=== PATIENT | male | born 1955 | race Caucasian/White ===

== ENCOUNTER 2018-09-13 07:24 | Day surgery (SDC) | payer BC ==
[2018-09-12 10:44] VITALS: BMI 25.0
[~2018-09-13 07:24] MED LIST: ACETAMINOPHEN 325 MG TABLET (FP) PO PRN
[2018-09-13] MEDS ORDERED: CYCLOPENTOLATE HCL 1% OPHTH SOLN 2 ML BOTTLE ONE (07:35)
[2018-09-13] MEDS ORDERED: OFLOXACIN 0.3% OPHTHALMIC SOLUTION 5 ML BOTTLE ONE (07:35)
[2018-09-13] MEDS ORDERED: KETOROLAC TROMETHAMINE 0.5% EYE DROP 1 DROP DROPS ONE (07:36)
[2018-09-13] MEDS ORDERED: TROPICAMIDE 1% OPHTH SOLN 15 ML BOTTLE ONE (07:36)
[2018-09-13] MEDS: KETOROLAC TROMETHAMINE 0.5% EYE DROP 1 DROP DROPS OP SCH ×3 (07:40→07:50)
[2018-09-13] MEDS: CYCLOPENTOLATE HCL 1% OPHTH SOLN 2 ML BOTTLE OP SCH ×3 (07:40→07:50)
[2018-09-13] MEDS: PHENYLEPHRINE 2.5% OPHTH SOLN 15 ML BOTTLE OP SCH ×3 (07:40→07:50)
[2018-09-13] MEDS: OFLOXACIN 0.3% OPHTHALMIC SOLUTION 5 ML BOTTLE OP SCH ×3 (07:40→07:50)
[2018-09-13] MEDS ORDERED: TROPICAMIDE 1% OPHTH SOLN 15 ML BOTTLE OP ONE ×3 (07:40→07:50)
[2018-09-13 07:49] VITALS: TEMP 97.8
[2018-09-13] MEDS ORDERED: TETRACAINE 0.5% OPHTH SOLN 2 ML BOTTLE ONE (08:43)
[2018-09-13] MEDS ORDERED: LIDOCAINE HCL/PF 1% SDV 5ML VIAL ONE (08:44)
[2018-09-13] MEDS ORDERED: MIDAZOLAM HCL 2 MG/2 ML SINGLE DOSE VIAL ONE (09:03)
[2018-09-13] MEDS ORDERED: POVIDONE-IODINE OINTMENT 10% - 28.4 GM TUBE TP ONE (09:14)
[2018-09-13] MEDS ORDERED: TETRACAINE 0.5% OPHTH SOLN 2 ML BOTTLE OD ONE (09:14)
[2018-09-13] MEDS ORDERED: BSS (NA/CA/MG/K) BALANCED SALT SOLUTION OPHTH SOLN 15 ML BOTTLE OD ONE ×2 (09:16→09:23)
[2018-09-13] MEDS ORDERED: LIDOCAINE HCL 1% PRESERVATIVE FREE - 30ML VIAL IO ONE (09:16)
[2018-09-13] MEDS ORDERED: CHONDROITIN SU A/HYALUR SOD 1 KIT IO ONE (09:17)
[2018-09-13] MEDS ORDERED: TRYPAN BLUE 0.5 ML DISP.SYRIN IO ONE (09:17)
[2018-09-13] MEDS ORDERED: HYALURONATE SODIUM 14 MG/ML DISP.SYRIN IO ONE ×2 (09:26→10:30)
[2018-09-13] MEDS ORDERED: TROPICAMIDE 1% OPHTH SOLN 15 ML BOTTLE OP SCH (09:45)
--- NOTE | 2018-09-13 09:54 | SPEC ---
DATE OF OPERATION: 09/13/2018 OPERATION: Phacoemulsification of right cataract with capsular staining with Trypan blue and posterior chamber intraocular lens implantation; the lens used [id number], 22.5 diopter power, Serial No. [id number]. PREOPERATIVE DIAGNOSIS: Mature cataract, right eye. ASSOCIATIVE DIAGNOSIS: POSTOPERATIVE DIAGNOSIS: Mature cataract, right eye. SURGEON: Ashok Amato M.D. ANESTHESIA: Topical MAC. COMPLICATIONS: None. PROCEDURE: The patient was brought to the operating room and correctly identified along with the operative site as well as correct intraocular lens campos. The patient was then prepped and draped in the usual sterile fashion including 5% Betadine solution in the conjunctival sac and an eyelid drape. An eyelid speculum was then placed into the operative eye. The eye was inspected and a poor red reflex was noted. A paracentesis port was created and .5 mL of intracameral preservative-free Lidocaine 1% was given. Beneath an air bubble, the capsule was then stained with Trypan blue. The Trypan blue was then irrigated from the eye with balanced salt solution (BBS). Viscoelastic was injected to inflate the anterior chamber. A temporal clear corneal would was created. A continuous circular capsulorrhexis was performed. The nucleus was then hydro-dissected and hydro-delineated was BSS and removed with phacoemulsification via dqfary-[id number] approach. The remaining cortical material was irrigated and aspirated from the eye. Viscoelastic was injected in the anterior chamber to inflate the capsular bag. The intraocular lens was then injected into the bag. The Viscoelastic was irrigated and aspirated from the eye. All wounds were tested and found to be watertight. No suture was placed. The intraocular lens was noted to be well centered and covered by the anterior capsular border. Topical Vancomycin was given. The eye was patched and shielded. The patient was discharged from the operating room in stable condition. ASHOK AMATO M.D. [id number]
[2018-09-13 10:27] VITALS: BP 148/80; PULSE 64
[2018-09-13] MEDS ORDERED: CHONDROITIN SU A/HYALUR SOD 1 KIT ONE (10:30)
== END 2018-09-13 10:34 | disposition home or self-care (01) ==
LOC: JASU-SURG 07:24
PROVIDERS: ATTEND Ophthalmology
PROC: 08RJ3JZ Replacement of Right Lens with Synthetic Substitute, Percutaneous Approach (ICD-10-PCS; principal; 2018-09-13 09:00)
DX: H25.091 Other age-related incipient cataract, right eye (principal); H57.89 Other specified disorders of eye and adnexa; I10 Essential (primary) hypertension

== ENCOUNTER 2018-09-27 07:18 | Day surgery (SDC) | payer BC ==
[2018-09-26 16:37] VITALS: BMI 25.0
[2018-09-27] MEDS ORDERED: OFLOXACIN 0.3% OPHTHALMIC SOLUTION 5 ML BOTTLE ONE (07:39)
[2018-09-27] MEDS ORDERED: CYCLOPENTOLATE HCL 1% OPHTH SOLN 2 ML BOTTLE ONE (07:39)
[2018-09-27] MEDS ORDERED: PHENYLEPHRINE 2.5% OPHTH SOLN 15 ML BOTTLE ONE (07:39)
[2018-09-27] MEDS ORDERED: TROPICAMIDE 1% OPHTH SOLN 15 ML BOTTLE ONE (07:39)
[2018-09-27] MEDS ORDERED: KETOROLAC TROMETHAMINE 0.5% EYE DROP 1 DROP DROPS ONE (07:39)
[2018-09-27] MEDS: KETOROLAC TROMETHAMINE 0.5% EYE DROP 1 DROP DROPS OP SCH ×3 (07:50→08:05)
[2018-09-27] MEDS: CYCLOPENTOLATE HCL 1% OPHTH SOLN 2 ML BOTTLE OP SCH ×3 (07:50→08:05)
[2018-09-27] MEDS: OFLOXACIN 0.3% OPHTHALMIC SOLUTION 5 ML BOTTLE OP SCH ×3 (07:50→08:05)
[2018-09-27] MEDS: TROPICAMIDE 1% OPHTH SOLN 15 ML BOTTLE OP SCH ×3 (07:50→08:05)
[2018-09-27] MEDS: PHENYLEPHRINE 2.5% OPHTH SOLN 15 ML BOTTLE OP SCH ×2 (07:50→07:55)
[2018-09-27] MEDS ORDERED: MIDAZOLAM HCL 2 MG/2 ML SINGLE DOSE VIAL ONE (09:14)
[2018-09-27] MEDS ORDERED: TETRACAINE 0.5% OPHTH SOLN 2 ML BOTTLE OS ONE (09:18)
[2018-09-27] MEDS ORDERED: POVIDONE-IODINE 5% OPHTHALMIC PREP 30 ML SOLUTION OS ONE (09:19)
[2018-09-27] MEDS ORDERED: CHONDROITIN SU A/HYALUR SOD 1 KIT IO ONE (09:27)
[2018-09-27] MEDS ORDERED: LIDOCAINE HCL 1% PRESERVATIVE FREE - 30ML VIAL IO ONE (09:27)
[2018-09-27] MEDS ORDERED: BSS (NA/CA/MG/K) BALANCED SALT SOLUTION OPHTH SOLN 15 ML BOTTLE OS ONE (09:27)
[2018-09-27] MEDS ORDERED: EPINEPHrine/PF 1 MG/1 ML (1:1,000) AMPULE SQ ONE (09:32)
--- NOTE | 2018-09-27 10:17 | SPEC ---
DATE OF OPERATION: DATE OF DICTATION 09/27/2018 OPERATION: Phacoemulsification with posterior chamber intraocular lens implantation, left eye. Lens used SN60WF, 21.0 Diopter power, Serial No. [id number]. PREOPERATIVE DIAGNOSIS: Cataract, left eye. POSTOPERATIVE DIAGNOSIS: Cataract, lefteye. SURGEON: Ashok Amato M.D. ANESTHESIA: Topical MAC. COMPLICATIONS: None. PROCEDURE: The patient was brought to the operating room and correctly identified along with the operative site and the correct intraocular lens campos. The patient was then prepped and draped in the usual sterile fashion including 5% Betadine solution in the conjunctival sac and an eyelid drape. An eyelid speculum was then placed in the eye. A paracentesis port was created and approximately 0.5 mL of preservative free Lidocaine was then injected into the eye. Viscoelastic was then injected to inflate the anterior chamber. A temporal clear corneal wound was created. A continuous circular capsulorrhexis was performed. The nucleus was then hydrodissected with BSS and removed with phacoemulsification. The remaining cortical material was irrigated and aspirated. Viscoelastic was injected to inflate the capsular bag and the intraocular lens was then implanted into the capsular bag. The remaining Viscoelastic was irrigated and aspirated from the eye. The IOL was noted to be well centered and completely covered by the anterior capsulorrhexis. Topical vancomycin was placed and the eye patched and shielded. All wounds were tested and found to be watertight. No suture was placed. The eye was then shielded. The patient was then discharged from the operating room in stable condition. ASHOK AMATO M.D. HL/[id number]
[2018-09-27 12:32] VITALS: BP 148/81; PULSE 60; TEMP 97.3
== END 2018-09-27 10:45 | disposition home or self-care (01) ==
LOC: JASU-SURG 07:18
PROVIDERS: ATTEND Ophthalmology
PROC: 08RK3JZ Replacement of Left Lens with Synthetic Substitute, Percutaneous Approach (ICD-10-PCS; principal; 2018-09-27 09:00)
DX: H26.9 Unspecified cataract (principal); I10 Essential (primary) hypertension; J44.9 Chronic obstructive pulmonary disease, unspecified

== ENCOUNTER 2022-06-23 13:23 | Inpatient (IN) | payer BC ==
[2022-06-23 15:26] LABS: BASO % 0.7 % (0-2.0); EOS % 1.1 % (0-4.5); HEMATOCRIT 45.3 % (35.4-49); HEMOGLOBIN 15.1 GM/dL (11.7-16.9); LYMPH % 16.1 % (8-40); MCH 30.8 pg (25.7-33.7); MCHC 33.4 g/dl (32.0-35.9); MEAN CELL VOLUME 92.2 fl (80-96); MEAN PLT VOLUME 7.5 fl (7.5-11.1); MONO % 8.5 % (3.8-10.2); NEUT % 73.6 % (42.8-82.8); PLATELET COUNT 358 10^3/uL (134-434); RBC 4.91 M/mm3 (4.00-5.60); RDW 12.9 % (11.9-15.9); WHITE BLOOD COUNT 11.5 K/mm3 (4.0-10.0)
[2022-06-23 15:32] LABS: INR 0.98 (0.83-1.09); PROTHROMBIN TIME (PATIENT) 11.3 SEC (9.7-13.0)
[2022-06-23 15:35] LABS: ACTIVATED PTT 31.1 SECONDS (25.2-36.5)
[2022-06-23 15:45] LABS: CALCIUM 9.5 mg/dL (8.5-10.1)
[2022-06-23 15:46] LABS: ALBUMIN 3.6 g/dl (3.4-5.0); BLOOD UREA NITROGEN 11.8 mg/dL (7-18); MAGNESIUM 2.1 mg/dL (1.8-2.4)
[2022-06-23 15:50] LABS: BILIRUBIN,TOTAL 0.4 mg/dL (0.2-1); TOT PROT 7.4 g/dl (6.4-8.2)
[2022-06-23] MEDS ORDERED: LIDOCAINE 1%/EPI 1:100000 (20 ML MULTI DOSE VIAL) ONE (18:07)
[2022-06-23] MEDS ORDERED: MIDAZOLAM HCL 2 MG/2 ML SINGLE DOSE VIAL IVPUSH ONE (18:12)
[2022-06-23] MEDS ORDERED: MIDAZOLAM HCL 2 MG/2 ML SINGLE DOSE VIAL ONE (18:13)
[2022-06-24] MEDS: ATORVASTATIN CA 40 MG TABLET (FP) PO SCH ×2 (02:35→21:18)
[2022-06-24] MEDS ORDERED: ACETAMINOPHEN 1000 MG/100 ML BAG IVPB ONE (02:38)
[2022-06-24] MEDS ORDERED: ATORVASTATIN CA 40 MG TABLET (FP) ONE (02:43)
[2022-06-24] MEDS: LEVOTHYROXINE NA 88 MCG TABLET (FP) PO SCH (08:55)
[2022-06-24] MEDS ORDERED: LEVOTHYROXINE NA 88 MCG TABLET (FP) ONE (08:58)
[2022-06-24 09:40] LABS: BASO % 0.3 % (0-2.0); EOS % 1.5 % (0-4.5); HEMATOCRIT 43.6 % (35.4-49); HEMOGLOBIN 14.6 GM/dL (11.7-16.9); LYMPH % 13.7 % (8-40); MCH 30.9 pg (25.7-33.7); MCHC 33.4 g/dl (32.0-35.9); MEAN CELL VOLUME 92.3 fl (80-96); MEAN PLT VOLUME 8.2 fl (7.5-11.1); MONO % 9.5 % (3.8-10.2); PLATELET COUNT 354 10^3/uL (134-434); RBC 4.72 M/mm3 (4.00-5.60); RDW 12.8 % (11.9-15.9)
[2022-06-24 10:07] LABS: ALBUMIN 3.4 g/dl (3.4-5.0)
[2022-06-24 10:08] LABS: CALCIUM 9.2 mg/dL (8.5-10.1); MAGNESIUM 2.1 mg/dL (1.8-2.4)
[2022-06-24 10:09] LABS: BLOOD UREA NITROGEN 15.3 mg/dL (7-18)
[2022-06-24 10:11] LABS: CREATININE 0.9 mg/dL (0.55-1.3); PHOSPHOROUS 3.7 mg/dL (2.5-4.9)
[2022-06-24 10:12] LABS: BILIRUBIN,TOTAL 0.7 mg/dL (0.2-1); TOT PROT 6.8 g/dl (6.4-8.2)
[2022-06-24] MEDS: ENALAPRIL MALEATE 5 MG TABLET PO SCH (11:16)
[2022-06-24] MEDS: ASPIRIN COATED 81 MG TABLET.EC PO SCH (11:17)
[2022-06-24] MEDS: metoPROLOL SUCCINATE 25 MG TAB.SR.24H (FP) PO SCH (11:17)
[2022-06-24] MEDS: ENOXAPARIN NA (PORCINE) 40 MG/0.4 ML DISP.SYRIN SQ SCH (11:18)
[2022-06-24] MEDS: CHOLECALCIFEROL (VIT D3) 1,000 UNIT (25 MCG) TABLET PO SCH (11:24)
[2022-06-25] MEDS: LEVOTHYROXINE NA 88 MCG TABLET (FP) PO SCH (06:48)
[2022-06-25 08:06] LABS: PH,URINE 5.5 (5.0-8.0); URINE APPEARANCE CLEAR; URINE BILIRUBIN NEGATIVE (NEGATIVE); URINE COLOR YELLOW; URINE GLUCOSE (UA) NEGATIVE (NEGATIVE); URINE KETONE TRACE (NEGATIVE); URINE LEUK ESTERASE NEGATIVE (NEGATIVE); URINE NITRITE NEGATIVE (NEGATIVE); URINE PROTEIN NEGATIVE (NEGATIVE)
[2022-06-25] MEDS: ENALAPRIL MALEATE 5 MG TABLET PO SCH (10:13)
[2022-06-25] MEDS: CHOLECALCIFEROL (VIT D3) 1,000 UNIT (25 MCG) TABLET PO SCH (10:13)
[2022-06-25] MEDS: metoPROLOL SUCCINATE 25 MG TAB.SR.24H (FP) PO SCH (10:13)
[2022-06-25] MEDS: ASPIRIN COATED 81 MG TABLET.EC PO SCH (10:13)
[2022-06-25] MEDS: ENOXAPARIN NA (PORCINE) 40 MG/0.4 ML DISP.SYRIN SQ SCH (10:14)
[2022-06-25] MEDS: guaiFENesin 200 MG/10 ML 10 ML UNIT-DOSE CUPS PO PRN (17:10)
[2022-06-25] MEDS: ATORVASTATIN CA 40 MG TABLET (FP) PO SCH (21:06)
[2022-06-26] MEDS: guaiFENesin 200 MG/10 ML 10 ML UNIT-DOSE CUPS PO PRN ×3 (00:55→17:39)
[2022-06-26] MEDS: LEVOTHYROXINE NA 88 MCG TABLET (FP) PO SCH (06:08)
[2022-06-26] MEDS: ENALAPRIL MALEATE 5 MG TABLET PO SCH (09:06)
[2022-06-26] MEDS: ENOXAPARIN NA (PORCINE) 40 MG/0.4 ML DISP.SYRIN SQ SCH (09:06)
[2022-06-26] MEDS: CHOLECALCIFEROL (VIT D3) 1,000 UNIT (25 MCG) TABLET PO SCH (09:06)
[2022-06-26] MEDS: ASPIRIN COATED 81 MG TABLET.EC PO SCH (09:06)
[2022-06-26] MEDS: metoPROLOL SUCCINATE 25 MG TAB.SR.24H (FP) PO SCH (09:06)
[2022-06-26] MEDS: ATORVASTATIN CA 40 MG TABLET (FP) PO SCH (21:46)
[2022-06-27] MEDS: LEVOTHYROXINE NA 88 MCG TABLET (FP) PO SCH (07:45)
[2022-06-27] MEDS: ASPIRIN COATED 81 MG TABLET.EC PO SCH (09:36)
[2022-06-27] MEDS: metoPROLOL SUCCINATE 25 MG TAB.SR.24H (FP) PO SCH (09:36)
[2022-06-27] MEDS: CHOLECALCIFEROL (VIT D3) 1,000 UNIT (25 MCG) TABLET PO SCH (09:36)
[2022-06-27] MEDS: ENALAPRIL MALEATE 5 MG TABLET PO SCH (09:36)
[2022-06-27] MEDS: ENOXAPARIN NA (PORCINE) 40 MG/0.4 ML DISP.SYRIN SQ SCH (09:37)
[2022-06-27] MEDS: guaiFENesin/CODEINE 10 ML UNIT-DOSE CUPS PO PRN ×2 (10:26→18:11)
[2022-06-27] MEDS: ATORVASTATIN CA 40 MG TABLET (FP) PO SCH (23:23)
[2022-06-28] MEDS: LEVOTHYROXINE NA 88 MCG TABLET (FP) PO SCH (07:04)
[2022-06-28] MEDS: guaiFENesin/CODEINE 10 ML UNIT-DOSE CUPS PO PRN ×2 (07:10→14:32)
[2022-06-28] MEDS: ASPIRIN COATED 81 MG TABLET.EC PO SCH (09:46)
[2022-06-28] MEDS: ENOXAPARIN NA (PORCINE) 40 MG/0.4 ML DISP.SYRIN SQ SCH (09:46)
[2022-06-28] MEDS: CHOLECALCIFEROL (VIT D3) 1,000 UNIT (25 MCG) TABLET PO SCH (09:46)
[2022-06-28] MEDS: metoPROLOL SUCCINATE 25 MG TAB.SR.24H (FP) PO SCH (09:46)
[2022-06-28] MEDS: ENALAPRIL MALEATE 5 MG TABLET PO SCH (09:47)
[2022-06-28] MEDS: ATORVASTATIN CA 40 MG TABLET (FP) PO SCH (23:23)
[2022-06-29] MEDS ORDERED: ACETAMINOPHEN 500 MG TABLET (FP) PO ONE (01:53)
[2022-06-29] MEDS: guaiFENesin/CODEINE 10 ML UNIT-DOSE CUPS PO PRN (02:22)
[2022-06-29] MEDS ORDERED: ACETAMINOPHEN 1000 MG/100 ML BAG IVPB PRN (07:15)
[2022-06-29] MEDS: LEVOTHYROXINE NA 88 MCG TABLET (FP) PO SCH (08:23)
[2022-06-29] MEDS: ASPIRIN COATED 81 MG TABLET.EC PO SCH (10:22)
[2022-06-29] MEDS: metoPROLOL SUCCINATE 25 MG TAB.SR.24H (FP) PO SCH (10:22)
[2022-06-29] MEDS: CHOLECALCIFEROL (VIT D3) 1,000 UNIT (25 MCG) TABLET PO SCH (10:22)
[2022-06-29] MEDS: ENALAPRIL MALEATE 5 MG TABLET PO SCH (10:23)
[2022-06-29] MEDS: ENOXAPARIN NA (PORCINE) 40 MG/0.4 ML DISP.SYRIN SQ SCH (10:23)
[2022-06-29 11:17] LABS: BASO % 0.4 % (0-2.0); EOS % 0.8 % (0-4.5); HEMOGLOBIN 14.3 GM/dL (11.7-16.9); LYMPH % 11.4 % (8-40); MCH 30.2 pg (25.7-33.7); MCHC 32.6 g/dl (32.0-35.9); MEAN CELL VOLUME 92.6 fl (80-96); MONO % 8.3 % (3.8-10.2); NEUT % 79.1 % (42.8-82.8); PLATELET COUNT 461 10^3/uL (134-434); RBC 4.75 M/mm3 (4.00-5.60); RDW 12.7 % (11.9-15.9); WHITE BLOOD COUNT 12.4 K/mm3 (4.0-10.0)
[2022-06-29 11:48] LABS: CALCIUM 9.3 mg/dL (8.5-10.1)
[2022-06-29 11:49] LABS: ALBUMIN 3.4 g/dl (3.4-5.0); BLOOD UREA NITROGEN 23.5 mg/dL (7-18)
[2022-06-29 11:53] LABS: BILIRUBIN,TOTAL 0.6 mg/dL (0.2-1)
[2022-06-29 11:54] LABS: TOT PROT 7.3 g/dl (6.4-8.2)
[2022-06-29] MEDS: oxyCODONE HCL 5 MG TABLET PO PRN ×2 (17:27→23:20)
[2022-06-29] MEDS: ATORVASTATIN CA 40 MG TABLET (FP) PO SCH (21:55)
[2022-06-30] MEDS: LEVOTHYROXINE NA 88 MCG TABLET (FP) PO SCH (06:42)
[2022-06-30] MEDS: ENALAPRIL MALEATE 5 MG TABLET PO SCH (09:36)
[2022-06-30] MEDS: ASPIRIN COATED 81 MG TABLET.EC PO SCH (09:36)
[2022-06-30] MEDS: metoPROLOL SUCCINATE 25 MG TAB.SR.24H (FP) PO SCH (09:36)
[2022-06-30] MEDS: CHOLECALCIFEROL (VIT D3) 1,000 UNIT (25 MCG) TABLET PO SCH (09:37)
[2022-06-30] MEDS: ENOXAPARIN NA (PORCINE) 40 MG/0.4 ML DISP.SYRIN SQ SCH (09:37)
[2022-06-30] MEDS: oxyCODONE HCL 5 MG TABLET PO PRN (17:34)
[2022-06-30] MEDS: ATORVASTATIN CA 40 MG TABLET (FP) PO SCH (21:12)
[2022-07-01] MEDS: oxyCODONE HCL 5 MG TABLET PO PRN (00:14)
[2022-07-01] MEDS: LEVOTHYROXINE NA 88 MCG TABLET (FP) PO SCH (06:20)
[2022-07-01] MEDS ORDERED: LIDOCAINE HCL/PF 2% SDV 5ML VIAL ONE (07:07)
[2022-07-01] MEDS ORDERED: DEXAMETHASONE SOD PHOSPHATE 4 MG/1 ML VIAL ONE (07:07)
[2022-07-01] MEDS ORDERED: ONDANSETRON 4 MG/2 ML VIAL ONE (07:07)
[2022-07-01] MEDS ORDERED: ceFAZolin SODIUM 1 GM VIAL ONE (07:07)
[2022-07-01] MEDS ORDERED: SODIUM CHLORIDE 0.9% P/F 10 ML VIAL IJ ONE (07:07)
[2022-07-01] MEDS ORDERED: FENTANYL CITRATE/PF 50 MCG/ML VIAL ONE ×2 (07:08→09:38)
[2022-07-01] MEDS ORDERED: PROPOFOL 40 ML ONE (07:08)
[2022-07-01] MEDS ORDERED: MIDAZOLAM HCL 2 MG/2 ML SINGLE DOSE VIAL ONE (07:09)
[2022-07-01] MEDS ORDERED: SUCCINYLCHOLINE CHLORIDE 200 MG/10 ML SYRINGE ONE (07:09)
[2022-07-01] MEDS ORDERED: ROCURONIUM BROMIDE 50 MG/5 ML SYRINGE ONE ×2 (07:09→09:12)
[2022-07-01] MEDS ORDERED: BUPIVACAINE LIPOSOME/PF (EXPAREL) 266 MG/20 ML VIAL ONE (07:22)
[2022-07-01] MEDS ORDERED: BUPIVACAINE HCL/PF 0.25% (2.5MG/ML) 10 ML VIAL ONE ×3 (07:22→07:38)
[2022-07-01] MEDS ORDERED: SUGAMMADEX SODIUM 200 MG/2 ML VIAL ONE ×2 (07:44→07:45)
[2022-07-01] MEDS ORDERED: ACETAMINOPHEN INJECTION 100 ML IVPB ONE (07:46)
[2022-07-01] MEDS ORDERED: ceFAZolin 2 GRAM PREMIX BAG IVPB ONE (08:40)
[2022-07-01] MEDS ORDERED: BUPIVACAINE HCL/PF 0.25% (2.5MG/ML) 10 ML VIAL IJ ONE ×3 (08:56)
[2022-07-01] MEDS ORDERED: PHENYLEPHRINE HCL 10 MG/1 ML SINGLE DOSE VIAL ONE (09:06)
[2022-07-01] MEDS: CHOLECALCIFEROL (VIT D3) 1,000 UNIT (25 MCG) TABLET PO SCH (09:33)
[2022-07-01] MEDS: metoPROLOL SUCCINATE 25 MG TAB.SR.24H (FP) PO SCH (09:33)
[2022-07-01] MEDS: ENALAPRIL MALEATE 5 MG TABLET PO SCH (09:33)
[2022-07-01] MEDS ORDERED: HYDROmorphone HCl 2 MG/ML VIAL ONE (09:39)
[2022-07-01] MEDS ORDERED: KETOROLAC TROMETHAMINE 30 MG/1 ML VIAL ONE (09:43)
[2022-07-01] MEDS ORDERED: ONDANSETRON 4 MG/2 ML VIAL IVPUSH PRN (12:04)
[2022-07-01] MEDS ORDERED: oxyCODONE HCL 5 MG TABLET PO PRN (12:09)
[2022-07-01] MEDS ORDERED: LACTATED RINGERS SOLUTION 1,000 ML IV SCH ×2 (12:15→17:54)
[2022-07-01] MEDS ORDERED: HYDROmorphone *PCA* 10MG/50ML DISP.SYRIN PCA SCH (12:15)
[2022-07-01] MEDS: ACETAMINOPHEN 1000 MG/100 ML BAG IVPB SCH ×2 (13:58→17:43)
[2022-07-01] MEDS: ATORVASTATIN CA 40 MG TABLET (FP) PO SCH (22:19)
[2022-07-01] MEDS: CHLORHEXIDINE GLUCONATE 4% CLEANSER FOR DECOLONIZATION TP SCH (22:19)
[2022-07-01] MEDS: MUPIROCIN 2% TOPICAL OINTMENT FOR DECOLONIZATION NS SCH (22:19)
[2022-07-02] MEDS: ACETAMINOPHEN 1000 MG/100 ML BAG IVPB SCH (00:26)
[2022-07-02] MEDS: LEVOTHYROXINE NA 88 MCG TABLET (FP) PO SCH (06:21)
[2022-07-02 07:19] LABS: HEMATOCRIT 42.5 % (35.4-49); HEMOGLOBIN 13.7 GM/dL (11.7-16.9); MCH 29.9 pg (25.7-33.7); MCHC 32.2 g/dl (32.0-35.9); MEAN CELL VOLUME 92.9 fl (80-96); MEAN PLT VOLUME 7.9 fl (7.5-11.1); PLATELET COUNT 383 10^3/uL (134-434); RBC 4.57 M/mm3 (4.00-5.60); RDW 12.8 % (11.9-15.9); WHITE BLOOD COUNT 21.6 K/mm3 (4.0-10.0)
[2022-07-02] MEDS ORDERED: oxyCODONE HCL 5 MG TABLET PO PRN (07:52)
[2022-07-02 07:54] LABS: BLOOD UREA NITROGEN 33.2 mg/dL (7-18); CALCIUM 8.3 mg/dL (8.5-10.1)
[2022-07-02] MEDS ORDERED: ACETAMINOPHEN 500 MG TABLET (FP) PO SCH (08:00)
[2022-07-02] MEDS ORDERED: SENNOSIDES 8.6MG TABLET (FP) PO PRN (09:09)
[2022-07-02] MEDS ORDERED: POLYETHYLENE GLYCOL (HEALTHYLAX) 3350 17 GM PACKET PO PRN (09:09)
[2022-07-02] MEDS ORDERED: PIPERACILLIN/TAZOB 4.5 GM 4.5 GM in DEXTROSE 5%-WATER 100 ML IVPB SCH (09:15)
[2022-07-02] MEDS ORDERED: ASPIRIN 81 MG CHEWABLE TABLETS PO SCH (10:00)
[2022-07-02] MEDS ORDERED: metoPROLOL SUCCINATE 25 MG TAB.SR.24H (FP) PO SCH (10:00)
[2022-07-02] MEDS ORDERED: ENOXAPARIN NA (PORCINE) 40 MG/0.4 ML DISP.SYRIN SQ SCH (10:00)
[2022-07-02] MEDS ORDERED: ENALAPRIL MALEATE 5 MG TABLET PO SCH (10:00)
[2022-07-02] MEDS: MUPIROCIN 2% TOPICAL OINTMENT FOR DECOLONIZATION NS SCH ×2 (10:14→21:38)
[2022-07-02] MEDS: CHOLECALCIFEROL (VIT D3) 1,000 UNIT (25 MCG) TABLET PO SCH (10:33)
[2022-07-02] MEDS: METOPROLOL TARTRATE 25 MG TABLET (FP) PO SCH ×2 (11:29→21:39)
[2022-07-02] MEDS ORDERED: dilTIAZem HCL 25 MG/5 ML - 5 ML VIAL IVPUSH ONE ×2 (11:59→12:47)
[2022-07-02] MEDS: ALBUTEROL SO4 2.5/IPRATROPIUM 0.5 INH SOL 3 ML VIAL.NEB. NEB SCH ×3 (12:15→20:37)
[2022-07-02] MEDS: ACETAMINOPHEN 500 MG TABLET (FP) PO SCH ×2 (14:30→21:39)
[2022-07-02] MEDS: DOCUSATE SODIUM 100 MG CAPSULE (FP) PO SCH ×2 (14:30→21:39)
[2022-07-02] MEDS: GABAPENTIN 300 MG CAPSULE PO SCH ×2 (14:30→21:40)
[2022-07-02] MEDS ORDERED: METOPROLOL TARTRATE 5 MG/5 ML VIAL IVPUSH PRN (16:39)
[2022-07-02] MEDS: PIPERACILLIN/TAZOB 3.375 GM 3.375 GM in DEXTROSE 5%-WATER - 50 ML IVPB SCH (17:04)
[2022-07-02] MEDS: ATORVASTATIN CA 40 MG TABLET (FP) PO SCH (21:39)
[2022-07-02] MEDS: CHLORHEXIDINE GLUCONATE 4% CLEANSER FOR DECOLONIZATION TP SCH (21:40)
[2022-07-02] MEDS ORDERED: APIXABAN 5 MG TABLET PO SCH (22:00)
[2022-07-03] MEDS: PIPERACILLIN/TAZOB 3.375 GM 3.375 GM in DEXTROSE 5%-WATER - 50 ML IVPB SCH ×3 (02:39→18:08)
[2022-07-03] MEDS: ACETAMINOPHEN 500 MG TABLET (FP) PO SCH ×3 (05:45→21:59)
[2022-07-03] MEDS: DOCUSATE SODIUM 100 MG CAPSULE (FP) PO SCH ×3 (05:46→21:59)
[2022-07-03] MEDS: GABAPENTIN 300 MG CAPSULE PO SCH ×3 (05:46→21:58)
[2022-07-03] MEDS: LEVOTHYROXINE NA 88 MCG TABLET (FP) PO SCH (06:41)
[2022-07-03] MEDS: METOPROLOL TARTRATE 25 MG TABLET (FP) PO SCH ×3 (06:41→22:01)
[2022-07-03] MEDS: ALBUTEROL SO4 2.5/IPRATROPIUM 0.5 INH SOL 3 ML VIAL.NEB. NEB SCH ×4 (08:12→20:33)
[2022-07-03 08:42] LABS: INR 1.35 (0.83-1.09); PROTHROMBIN TIME (PATIENT) 15.6 SEC (9.7-13.0)
[2022-07-03 08:44] LABS: ACTIVATED PTT 29.1 SECONDS (25.2-36.5)
[2022-07-03 08:49] LABS: HEMATOCRIT 41.2 % (35.4-49); HEMOGLOBIN 13.1 GM/dL (11.7-16.9); MCH 29.8 pg (25.7-33.7); MCHC 31.7 g/dl (32.0-35.9); MEAN CELL VOLUME 93.9 fl (80-96); MEAN PLT VOLUME 8.2 fl (7.5-11.1); PLATELET COUNT 373 10^3/uL (134-434); RBC 4.38 M/mm3 (4.00-5.60); RDW 12.9 % (11.9-15.9); WHITE BLOOD COUNT 20.1 K/mm3 (4.0-10.0)
[2022-07-03 09:08] LABS: CALCIUM 8.4 mg/dL (8.5-10.1)
[2022-07-03 09:09] LABS: BLOOD UREA NITROGEN 23.4 mg/dL (7-18)
[2022-07-03 09:11] LABS: BILIRUBIN,TOTAL 0.5 mg/dL (0.2-1); CREATININE 0.9 mg/dL (0.55-1.3)
[2022-07-03 09:13] LABS: TOT PROT 5.5 g/dl (6.4-8.2)
[2022-07-03 09:23] LABS: ALBUMIN 2.1 g/dl (3.4-5.0)
[2022-07-03 09:26] LABS: ANISOCYTOSIS 1+; MACROCYTOSIS 1+
[2022-07-03] MEDS: PANTOPRAZOLE 40 MG TABLET PO SCH (09:37)
[2022-07-03] MEDS: ASPIRIN COATED 81 MG TABLET.EC PO SCH (09:37)
[2022-07-03] MEDS: MUPIROCIN 2% TOPICAL OINTMENT FOR DECOLONIZATION NS SCH ×2 (09:37→22:01)
[2022-07-03] MEDS: ENOXAPARIN NA (PORCINE) 40 MG/0.4 ML DISP.SYRIN SQ SCH (09:37)
[2022-07-03] MEDS: CHOLECALCIFEROL (VIT D3) 1,000 UNIT (25 MCG) TABLET PO SCH (09:37)
[2022-07-03 12:32] VITALS: BMI 26.4
[2022-07-03] MEDS: traMADol HCL 50 MG TABLET PO PRN ×2 (13:32→18:08)
[2022-07-03] MEDS: ATORVASTATIN CA 40 MG TABLET (FP) PO SCH (21:58)
[2022-07-03] MEDS: CHLORHEXIDINE GLUCONATE 4% CLEANSER FOR DECOLONIZATION TP SCH (22:01)
[2022-07-04] MEDS: PIPERACILLIN/TAZOB 3.375 GM 3.375 GM in DEXTROSE 5%-WATER - 50 ML IVPB SCH ×3 (01:05→18:18)
[2022-07-04] MEDS: DOCUSATE SODIUM 100 MG CAPSULE (FP) PO SCH ×3 (05:42→21:59)
[2022-07-04] MEDS: GABAPENTIN 300 MG CAPSULE PO SCH ×3 (05:42→22:00)
[2022-07-04] MEDS: METOPROLOL TARTRATE 25 MG TABLET (FP) PO SCH ×3 (05:42→22:00)
[2022-07-04] MEDS: ACETAMINOPHEN 500 MG TABLET (FP) PO SCH ×3 (05:42→22:00)
[2022-07-04] MEDS: LEVOTHYROXINE NA 88 MCG TABLET (FP) PO SCH (06:24)
[2022-07-04 07:45] LABS: BASO % 0.2 % (0-2.0); EOS % 2.3 % (0-4.5); HEMATOCRIT 39.4 % (35.4-49); HEMOGLOBIN 12.5 GM/dL (11.7-16.9); LYMPH % 7.4 % (8-40); MCH 29.7 pg (25.7-33.7); MCHC 31.8 g/dl (32.0-35.9); MEAN CELL VOLUME 93.4 fl (80-96); MEAN PLT VOLUME 8.2 fl (7.5-11.1); MONO % 9.1 % (3.8-10.2); PLATELET COUNT 360 10^3/uL (134-434); RBC 4.22 M/mm3 (4.00-5.60); RDW 13.3 % (11.9-15.9); WHITE BLOOD COUNT 16.3 K/mm3 (4.0-10.0)
[2022-07-04] MEDS: ALBUTEROL SO4 2.5/IPRATROPIUM 0.5 INH SOL 3 ML VIAL.NEB. NEB SCH ×4 (07:50→20:05)
[2022-07-04 07:51] LABS: CALCIUM 8.3 mg/dL (8.5-10.1)
[2022-07-04 07:52] LABS: BLOOD UREA NITROGEN 19.5 mg/dL (7-18)
[2022-07-04 07:55] LABS: CREATININE 0.9 mg/dL (0.55-1.3)
[2022-07-04 07:56] LABS: TOT PROT 5.3 g/dl (6.4-8.2)
[2022-07-04 07:57] LABS: BILIRUBIN,TOTAL 0.4 mg/dL (0.2-1)
[2022-07-04] MEDS: ENOXAPARIN NA (PORCINE) 40 MG/0.4 ML DISP.SYRIN SQ SCH (09:15)
[2022-07-04] MEDS: MUPIROCIN 2% TOPICAL OINTMENT FOR DECOLONIZATION NS SCH ×2 (09:17→22:05)
[2022-07-04] MEDS: CHOLECALCIFEROL (VIT D3) 1,000 UNIT (25 MCG) TABLET PO SCH (09:17)
[2022-07-04] MEDS: ASPIRIN COATED 81 MG TABLET.EC PO SCH (09:17)
[2022-07-04] MEDS: PANTOPRAZOLE 40 MG TABLET PO SCH (09:17)
[2022-07-04] MEDS: traMADol HCL 50 MG TABLET PO PRN (18:18)
[2022-07-04] MEDS: ATORVASTATIN CA 40 MG TABLET (FP) PO SCH (21:59)
[2022-07-04] MEDS: CHLORHEXIDINE GLUCONATE 4% CLEANSER FOR DECOLONIZATION TP SCH (21:59)
[2022-07-05] MEDS: PIPERACILLIN/TAZOB 3.375 GM 3.375 GM in DEXTROSE 5%-WATER - 50 ML IVPB SCH ×3 (02:00→18:46)
[2022-07-05] MEDS: GABAPENTIN 300 MG CAPSULE PO SCH ×3 (06:45→21:25)
[2022-07-05] MEDS: METOPROLOL TARTRATE 25 MG TABLET (FP) PO SCH ×3 (06:45→21:25)
[2022-07-05] MEDS: LEVOTHYROXINE NA 88 MCG TABLET (FP) PO SCH (06:45)
[2022-07-05] MEDS: DOCUSATE SODIUM 100 MG CAPSULE (FP) PO SCH ×3 (06:45→21:24)
[2022-07-05] MEDS: ACETAMINOPHEN 500 MG TABLET (FP) PO SCH ×3 (06:45→21:25)
[2022-07-05 07:50] LABS: BASO % 0.4 % (0-2.0); EOS % 2.5 % (0-4.5); HEMATOCRIT 40.4 % (35.4-49); HEMOGLOBIN 13.1 GM/dL (11.7-16.9); LYMPH % 9.7 % (8-40); MCH 30.3 pg (25.7-33.7); MCHC 32.4 g/dl (32.0-35.9); MEAN CELL VOLUME 93.4 fl (80-96); MEAN PLT VOLUME 8.2 fl (7.5-11.1); MONO % 9.3 % (3.8-10.2); NEUT % 78.1 % (42.8-82.8); PLATELET COUNT 427 10^3/uL (134-434); RBC 4.32 M/mm3 (4.00-5.60); WHITE BLOOD COUNT 12.1 K/mm3 (4.0-10.0)
[2022-07-05] MEDS: ALBUTEROL SO4 2.5/IPRATROPIUM 0.5 INH SOL 3 ML VIAL.NEB. NEB SCH ×4 (07:55→20:31)
[2022-07-05 08:11] LABS: CALCIUM 8.4 mg/dL (8.5-10.1)
[2022-07-05 08:12] LABS: BLOOD UREA NITROGEN 17.2 mg/dL (7-18); MAGNESIUM 2.2 mg/dL (1.8-2.4)
[2022-07-05 08:15] LABS: CREATININE 0.9 mg/dL (0.55-1.3); PHOSPHOROUS 2.9 mg/dL (2.5-4.9)
[2022-07-05 08:17] LABS: BILIRUBIN,TOTAL 0.5 mg/dL (0.2-1); TOT PROT 5.4 g/dl (6.4-8.2)
[2022-07-05] MEDS: PANTOPRAZOLE 40 MG TABLET PO SCH (09:25)
[2022-07-05] MEDS: ENOXAPARIN NA (PORCINE) 40 MG/0.4 ML DISP.SYRIN SQ SCH (09:25)
[2022-07-05] MEDS: CHOLECALCIFEROL (VIT D3) 1,000 UNIT (25 MCG) TABLET PO SCH (09:25)
[2022-07-05] MEDS: ASPIRIN COATED 81 MG TABLET.EC PO SCH (09:25)
[2022-07-05] MEDS: MUPIROCIN 2% TOPICAL OINTMENT FOR DECOLONIZATION NS SCH ×2 (09:26→21:24)
[2022-07-05] MEDS: APIXABAN 5 MG TABLET PO SCH (21:24)
[2022-07-05] MEDS: CHLORHEXIDINE GLUCONATE 4% CLEANSER FOR DECOLONIZATION TP SCH (21:25)
[2022-07-05] MEDS: ATORVASTATIN CA 40 MG TABLET (FP) PO SCH (21:25)
[2022-07-06] MEDS: PIPERACILLIN/TAZOB 3.375 GM 3.375 GM in DEXTROSE 5%-WATER - 50 ML IVPB SCH ×2 (01:33→09:11)
[2022-07-06 01:50] VITALS: RESP 22
[2022-07-06] MEDS: GABAPENTIN 300 MG CAPSULE PO SCH (06:47)
[2022-07-06] MEDS: ACETAMINOPHEN 500 MG TABLET (FP) PO SCH (06:47)
[2022-07-06] MEDS: DOCUSATE SODIUM 100 MG CAPSULE (FP) PO SCH (06:47)
[2022-07-06] MEDS: LEVOTHYROXINE NA 88 MCG TABLET (FP) PO SCH (06:48)
[2022-07-06 07:47] LABS: BASO % 0.6 % (0-2.0); CALCIUM 8.5 mg/dL (8.5-10.1); EOS % 2.9 % (0-4.5); HEMATOCRIT 38.2 % (35.4-49); HEMOGLOBIN 12.7 GM/dL (11.7-16.9); LYMPH % 9.8 % (8-40); MCH 30.9 pg (25.7-33.7); MCHC 33.1 g/dl (32.0-35.9); MEAN CELL VOLUME 93.2 fl (80-96); MEAN PLT VOLUME 7.9 fl (7.5-11.1); MONO % 10.9 % (3.8-10.2); NEUT % 75.8 % (42.8-82.8); PLATELET COUNT 429 10^3/uL (134-434); RDW 13.1 % (11.9-15.9); WHITE BLOOD COUNT 11.2 K/mm3 (4.0-10.0)
[2022-07-06 07:48] LABS: BLOOD UREA NITROGEN 18.1 mg/dL (7-18); MAGNESIUM 2.2 mg/dL (1.8-2.4)
[2022-07-06 07:51] LABS: BILIRUBIN,TOTAL 0.4 mg/dL (0.2-1)
[2022-07-06 07:52] LABS: TOT PROT 5.6 g/dl (6.4-8.2)
[2022-07-06] MEDS: ALBUTEROL SO4 2.5/IPRATROPIUM 0.5 INH SOL 3 ML VIAL.NEB. NEB SCH ×3 (08:00→15:41)
[2022-07-06] MEDS: APIXABAN 5 MG TABLET PO SCH (09:12)
[2022-07-06] MEDS: PANTOPRAZOLE 40 MG TABLET PO SCH (09:12)
[2022-07-06] MEDS: MUPIROCIN 2% TOPICAL OINTMENT FOR DECOLONIZATION NS SCH (09:14)
[2022-07-06] MEDS: CHOLECALCIFEROL (VIT D3) 1,000 UNIT (25 MCG) TABLET PO SCH (09:14)
[2022-07-06] MEDS ORDERED: METOPROLOL TARTRATE 25 MG TABLET (FP) PO SCH (10:00)
[2022-07-06 12:04] VITALS: PULSE 76
[2022-07-06 13:21] VITALS: TEMP 98.4
[2022-07-06 15:24] VITALS: BP 108/66
== END 2022-07-06 15:35 | disposition home health service (06) | DRG 164 ==
LOC: JER 13:23 → JERBED 19:09 → J6S 06-24 09:40 → JICU 07-01 11:55
PROVIDERS: ADMIT Internal Medicine; ATTEND Internal Medicine
PROC: 0BTC4ZZ Resection of Right Upper Lung Lobe, Percutaneous Endoscopic Approach (ICD-10-PCS; 2022-07-01)
PROC: 0BTD4ZZ Resection of Right Middle Lung Lobe, Percutaneous Endoscopic Approach (ICD-10-PCS; 2022-07-01)
PROC: 07T74ZZ Resection of Thorax Lymphatic, Percutaneous Endoscopic Approach (ICD-10-PCS; 2022-07-01)
PROC: 0BJ08ZZ Inspection of Tracheobronchial Tree, Via Natural or Artificial Opening Endoscopic (ICD-10-PCS; 2022-07-01)
PROC: 0B5N4ZZ Destruction of Right Pleura, Percutaneous Endoscopic Approach (ICD-10-PCS; principal; 2022-07-01 07:30)
DX: J93.12 Secondary spontaneous pneumothorax (principal); I97.191 Other postprocedural cardiac functional disturbances following other surgery; J43.8 Other emphysema; I48.0 Paroxysmal atrial fibrillation; R91.1 Solitary pulmonary nodule; E78.5 Hyperlipidemia, unspecified; E03.9 Hypothyroidism, unspecified; D72.829 Elevated white blood cell count, unspecified; Y83.9 Surgical procedure, unspecified as the cause of abnormal reaction of the patient, or of later complication, without mention of misadventure at the time of the procedure; I25.10 Atherosclerotic heart disease of native coronary artery without angina pectoris
CPT/HCPCS: 0241U-QW; 36415; 71045-TC-FY; 71046-TC-FY; 71250-TC; 80048; 80053; 81003; 82550; 82553; 83735; 84100; 84443; 84484; 85025; 85027; 85610; 85730; 86850; 86900; 86901; 86922; 87040; 87070; 87075; 87086; 87102; 87116; 87205; 87206; 87210; 88307-TC; 88331-TC; 93005; 93010; 93306-TC; 94010; 94640; 94760; 94761; 97116-GP; 97162-GP; 99285-25

== ENCOUNTER 2023-02-18 15:25 | Emergency (ER) | payer BC ==
[2023-02-18 15:43] VITALS: RESP 18; TEMP 99.9; BMI 25.7
[2023-02-18] MEDS ORDERED: ACETAMINOPHEN 1000 MG/100 ML BAG IVPB ONE (16:05)
[2023-02-18] MEDS ORDERED: ACETAMINOPHEN INJECTION 100 ML IVPB ONE (16:07)
[2023-02-18] MEDS ORDERED: methylPREDNISolone NA SUCC 125 MG/2 ML VIAL IVPUSH ONE (16:08)
[2023-02-18] MEDS ORDERED: ALBUTEROL SO4 2.5/IPRATROPIUM 0.5 INH SOL 3 ML VIAL.NEB. NEB ONE (16:27)
[2023-02-18] MEDS ORDERED: methylPREDNISolone NA SUCC 125 MG/2 ML VIAL ONE (16:27)
[2023-02-18] MEDS: ALBUTEROL SO4 2.5/IPRATROPIUM 0.5 INH SOL 3 ML VIAL.NEB. NEB SCH (16:40)
[2023-02-18 16:46] LABS: BASO % 0.4 % (0-2.0); HEMATOCRIT 41.9 % (35.4-49); HEMOGLOBIN 14.1 GM/dL (11.7-16.9); LYMPH % 7.8 % (8-40); MCH 30.9 pg (25.7-33.7); MCHC 33.6 g/dl (32.0-35.9); MEAN PLT VOLUME 8.9 fl (7.5-11.1); MONO % 12.8 % (3.8-10.2); PLATELET COUNT 265 10^3/uL (134-434); RBC 4.55 M/mm3 (4.00-5.60); RDW 13.4 % (11.9-15.9); WHITE BLOOD COUNT 22.1 K/mm3 (4.0-10.0)
[2023-02-18 17:21] LABS: POTASSIUM 4.6 mmol/L (3.5-5.1)
[2023-02-18 17:22] LABS: CALCIUM 8.7 mg/dL (8.5-10.1)
[2023-02-18 17:23] LABS: ALBUMIN 3.3 g/dl (3.4-5.0); BLOOD UREA NITROGEN 16.6 mg/dL (7-18)
[2023-02-18 17:26] LABS: CREATININE 1.1 mg/dL (0.55-1.3)
[2023-02-18 17:28] LABS: BILIRUBIN,TOTAL 0.8 mg/dL (0.2-1); TOT PROT 6.9 g/dl (6.4-8.2)
[2023-02-18 17:56] LABS: ANISOCYTOSIS 1+; MACROCYTOSIS 1+; PLATELET ESTIMATE NORMAL
[2023-02-18 19:57] VITALS: BP 140/85; PULSE 81
[2023-02-18 23:54] LABS: N-TERMINAL BNP 201.7 pg/ml (5-125)
== END 2023-02-18 19:59 | disposition home or self-care (01) ==
LOC: JER 15:25
PROC: 3E033NZ Introduction of Analgesics, Hypnotics, Sedatives into Peripheral Vein, Percutaneous Approach (ICD-10-PCS; principal; 2023-02-18)
PROC: 3E033GC Introduction of Other Therapeutic Substance into Peripheral Vein, Percutaneous Approach (ICD-10-PCS; 2023-02-18)
PROC: 3E0F7GC Introduction of Other Therapeutic Substance into Respiratory Tract, Via Natural or Artificial Opening (ICD-10-PCS; 2023-02-18)
DX: R06.02 Shortness of breath (principal); R07.9 Chest pain, unspecified; R50.9 Fever, unspecified; J44.1 Chronic obstructive pulmonary disease with (acute) exacerbation; Z20.822 Contact with and (suspected) exposure to COVID-19
CPT/HCPCS: 0241U-QW; 36415; 71045-TC-FY; 80053; 83880; 84484; 85025; 93005; 93010; 99285-25